=== PATIENT | female | born 1955 | race Caucasian/White ===

== ENCOUNTER → 2024-01-07 12:49 | Outpatient (REF) | payer OTHER, SELFPAY | LOC: HWWDC 12:49 | PROVIDERS: ATTENDING PHYSICIAN Obstetrics & Gynecology Gynecology; FAMILY PHYSICIAN Family Medicine | DX: Z12.31 Encounter for screening mammogram for malignant neoplasm of breast (principal) | CPT/HCPCS: 77063; 77067 ==

== ENCOUNTER → 2025-01-17 12:55 | Outpatient (REF) | payer OTHER, SELFPAY | LOC: HWWDC 12:55 | PROVIDERS: ATTENDING PHYSICIAN Obstetrics & Gynecology Gynecology; FAMILY PHYSICIAN Family Medicine | DX: Z12.31 Encounter for screening mammogram for malignant neoplasm of breast (principal) | CPT/HCPCS: 77063; 77067 ==